=== PATIENT | female | born 1995 | race Hispanic/Latino ===

== ENCOUNTER 2024-02-28 11:22 | Inpatient (IN) | payer OTHER ==
[~2024-02-28 11:22] MED LIST: Bupivacaine PF 0.5% 30 ML VIAL ONE
[2024-02-28] MEDS ORDERED: Carboprost 250 MCG/ML AMP IM PRN (12:41)
[2024-02-28] MEDS ORDERED: fentaNYL 50 mcg/mL 1 mL Vial SLOW IVP PRN (12:41)
[2024-02-28] MEDS ORDERED: hydrALAZINE 20 MG/ML VIAL SLOW IVP PRN (12:41)
[2024-02-28] MEDS ORDERED: Diphenoxylate HCl/Atropine Tablet PO PRN (12:41)
[2024-02-28] MEDS ORDERED: Methylergonovine 0.2 MG/ML VIAL IM PRN (12:41)
[2024-02-28] MEDS ORDERED: Ondansetron PF 4 MG/2 ML Vial IVP PRN (12:41)
[2024-02-28] MEDS ORDERED: Promethazine HCl 25 MG/ML VIAL IM PRN (12:41)
[2024-02-28] MEDS ORDERED: Tranexamic Acid 1,000 MG/10 ML VIAL IVP PRN (12:41)
[2024-02-28] MEDS ORDERED: Oxytocin 30 units/NS 500 ML 500 ML IV SCH (12:45)
[2024-02-28 13:04] VITALS: BMI 26.0
[2024-02-28] MEDS: Misoprostol 200 MCG TAB VAG SCH (13:26)
[2024-02-28 13:33] LABS: Hematocrit 32.5 % (34.9-44.5); Hemoglobin 11.1 g/dL (12.0-15.5); Mean Corpuscular HGB CONC 34.2 g/dL (32.0-36.0); Mean Corpuscular Hemoglobin 29.8 pg (27.0-33.0); Mean Corpuscular Volume 87.1 fL (81.6-98.3); Mean Platelet Volume 9.9 fL (7.4-10.4); Platelet Count 361 10x3/uL (150-450); RBC Distribution Width 13.2 % (11.5-14.5); Red Blood Cell (RBC) Count 3.73 10x6/uL (3.90-5.03); White Blood Cell (WBC) Count 10.3 10x3/uL (3.5-10.5)
[2024-02-28 14:19] LABS: Syphilis Antibody Nonreactive (Nonreactive); Syphilis Antibody Index 0.04 S/CO (<1.00 Non-Reactive)
[2024-02-28 14:20] LABS: HBsAg Index 0.19 S/CO (0-0.99); Hep B Surf Ag - L&D Non-Reactive S/CO (NonReactive)
[2024-02-28 14:33] LABS: ALT (SGPT) 11 U/L (8-55); AST (SGOT) 19 U/L (5-34); Albumin 3.3 g/dL (3.5-5.0); Alkaline Phosphatase 76 U/L (40-110); Anion Gap 13 mmol/L (10-20); BUN (Urea Nitrogen) 10 mg/dL (7.0-18.7); Bilirubin, Total 0.2 mg/dL (0.2-1.2); Calc. Creatinine Clearance 135 mL/min (70-130); Calcium 8.8 mg/dL (7.8-10.44); Carbon Dioxide 19 mmol/L (22-29); Chloride 108 mmol/L (98-107); Estimated GFR 125; Globulin 3.3 g/dL (2.4-3.5); Glucose 92 mg/dL (70-105); Potassium 4.1 mmol/L (3.5-5.1); Protein, Total 6.6 g/dL (6.0-8.3); Sodium 136 mmol/L (136-145)
[2024-02-28 14:35] LABS: INR-International Normal Ratio 0.9; PTT 26.2 sec (22.0-33.0); Prothrombin Time 9.8 sec (9.5-12.1)
[2024-02-29] MEDS: Acetaminophen 500 MG TAB PO PRN (17:02)
[2024-02-29] MEDS: fentaNYL/Ropivacaine Epidural 100 ML ONE (22:39)
[2024-02-29] MEDS: Ibuprofen 800 MG TAB PO SCH (23:00)
[2024-02-29] MEDS: Misoprostol 200 MCG TAB PR PRN (23:12)
[2024-02-29] MEDS ORDERED: diphenhydrAMINE 50 MG/ML VIAL IVP PRN (23:37)
[2024-02-29] MEDS ORDERED: Moisturizing Cream (Eucerin) 113 GM JAR TOP PRN (23:37)
[2024-02-29] MEDS ORDERED: Naloxone HCl 0.4 mg/ml Vial IVP PRN ×2 (23:37)
[2024-02-29] MEDS ORDERED: Lactated Ringer's 500 ML IV PRN (23:37)
[2024-02-29] MEDS ORDERED: Acetaminophen 325 MG TAB PO PRN (23:37)
[2024-02-29] MEDS ORDERED: Promethazine HCl 25 MG/ML VIAL IM PRN (23:37)
[2024-02-29] MEDS ORDERED: Ondansetron PF 4 MG/2 ML Vial IVP PRN (23:37)
[2024-02-29] MEDS ORDERED: ePHEDrine Sulfate 50 MG/10 ML VIAL SLOW IVP PRN (23:37)
[2024-02-29] MEDS ORDERED: Communication Order-Pharmacy FS SCH (23:45)
[2024-02-29] MEDS ORDERED: fentaNYL 2 mcg/Ropivacaine 0.2% Epidural 100 ML CADD EPIDURAL SCH (23:45)
[2024-02-29] MEDS ORDERED: Boostrix 0.5 ML (Tdap) VIAL (>/=7 yrs of age) IM ONE (23:51)
[2024-02-29] MEDS ORDERED: traMADol HCl 50 MG TAB PO PRN (23:51)
[2024-02-29] MEDS ORDERED: diphenhydrAMINE 25 MG CAP PO PRN (23:51)
[2024-02-29] MEDS ORDERED: hydrALAZINE 20 MG/ML VIAL SLOW IVP PRN (23:51)
[2024-02-29] MEDS ORDERED: Zolpidem Tartrate 5 MG TAB PO PRN (23:51)
[2024-03-01] MEDS ORDERED: Ibuprofen 800 MG TAB PO SCH (06:00)
[2024-03-01 06:12] LABS: HSV-1 IgG Type Specific Reactive (Non Reactive)
[2024-03-01] MEDS ORDERED: Ferrous Sulfate 325 MG TAB PO SCH (08:00)
[2024-03-01 08:13] LABS: Toxoplasma IgG AB Less than 3.0 IU/mL (0.0-7.1)
[2024-03-03 10:36] LABS: CMV IgM AB Less than 30.0 AU/mL (0.0-29.9); Toxoplasma IgM AB Less than 3.0 AU/mL (0.0-7.9)
[2024-03-04 13:41] LABS: Cardiolipin IgG Ab 0.7 GPL-U/mL (<10 Negative); Cardiolipin IgM Ab 1.6 MPL-U/mL (<10 Negative); EliA APS New Method **** NEW METHOD ****; beta-2-Glycoprotein I IgA Ab 1.2 U/mL (<7 Negative); beta-2-Glycoprotein I IgG Ab 1.2 U/mL (<7 Negative); beta-2-Glycoprotein I IgM Abs 3.3 U/mL (<7 Negative)
== END 2024-03-01 10:24 | disposition home or self-care (01) | DRG 807 ==
LOC: CSHLD/OP 11:22 → CSHERS 11:22 → EDSTATUS 11:42 → CSHLD 12:19
PROVIDERS: ADMIT Obstetrics & Gynecology; ATTEND Obstetrics & Gynecology
PROC: 10E0XZZ Delivery of Products of Conception, External Approach (ICD-10-PCS; principal; 2024-02-29)
PROC: 3E0DXGC Introduction of Other Therapeutic Substance into Mouth and Pharynx, External Approach (ICD-10-PCS; 2024-02-29)
PROC: 3E0S3BZ Introduction of Anesthetic Agent into Epidural Space, Percutaneous Approach (ICD-10-PCS; 2024-02-29)
DX: O36.4XX0 Maternal care for intrauterine death, not applicable or unspecified (principal); Z37.1 Single stillbirth; Z3A.24 24 weeks gestation of pregnancy
CPT/HCPCS: 36415; 51702; 80053; 85027; 85598; 85610; 85613; 85730; 86146; 86147; 86645; 86695; 86696; 86762; 86777; 86778; 86780; 86850; 86900; 86901; 87340; 88305; 99285; J0665